=== PATIENT | male | born 1975 | race Caucasian/White ===

== ENCOUNTER 2017-03-21 18:23 | Emergency (ER) | payer OTHER ==
[~2017-03-21] VITALS: Ht 170.2 cm; Wt 113.4 kg
[~2017-03-21 18:23] MED LIST: ALLOPURINOL; AMLODIPINE; ASA5UEC; HCTZ; LISINOPRIL; NAPROSYN500 MG PO; NIASPAN
[2017-03-21 19:44] VITALS: BP 148/89
== END 2017-03-21 19:44 | disposition home or self-care (01) ==
LOC: M.ERS 18:23
DX: S63.511A Sprain of carpal joint of right wrist, initial encounter (principal); I10 Essential (primary) hypertension; J45.909 Unspecified asthma, uncomplicated; X58.XXXA Exposure to other specified factors, initial encounter; Y93.89 Activity, other specified; Y92.89 Other specified places as the place of occurrence of the external cause; Y99.0 Civilian activity done for income or pay